=== PATIENT | male | born 1935 | race Caucasian/White ===

== ENCOUNTER → 2016-08-19 | Outpatient (CLI) | payer BC, MEDICARE ==
[~2016-08-19] MED LIST: ATEN50TA PO; ATOR20TA38 PO; COU1 PO; HYDR-3498 PO; LISI40TA9 PO; METF500T PO; ULT50 PO
--- NOTE | 2016-08-19 10:11 | RADRPT ---
PROCEDURE: XR Right hip and pelvis. CLINICAL INDICATION: Right hip pain. Pelvic pain. Postop. TECHNIQUE: Three views. Frontal pelvis. Frontal and lateral right hip. COMPARISON: 05/15/2016. 02/25/2016. FINDINGS: There is no fracture or dislocation. The soft tissues are normal. There is a right hip total arthroplasty which appears satisfactory. The left hip is grossly normal. There is no lytic or blastic lesion. Surgical clips are present in the pelvis. IMPRESSION: 1. Satisfactory postoperative appearance of the right hip. 2. Grossly normal appearance of the left hip. 3. Surgical clips in the pelvis. RPTAT: QQ .Juan Vasquez MD, MD Date Time Electronically viewed and signed by .Juan Vasquez MD, MD on 08/19/2016 10:10 .R/
--- NOTE | 2016-08-19 10:12 | RADRPT ---
PROCEDURE: XR Right hip and pelvis. CLINICAL INDICATION: Right hip pain. Pelvic pain. Postop. TECHNIQUE: Three views. Frontal pelvis. Frontal and lateral right hip. COMPARISON: 05/15/2016. 02/25/2016. FINDINGS: There is no fracture or dislocation. The soft tissues are normal. There is a right hip total arthroplasty which appears satisfactory. The left hip is grossly normal. There is no lytic or blastic lesion. Surgical clips are present in the pelvis. IMPRESSION: 1. Satisfactory postoperative appearance of the right hip. 2. Grossly normal appearance of the left hip. 3. Surgical clips in the pelvis. RPTAT: QQ .Juan Vasquez MD, MD Date Time Electronically viewed and signed by .Juan Vasquez MD, MD on 08/19/2016 10:12 .R/
== END | disposition home or self-care (01) ==
LOC: HKI 08:47
PROVIDERS: ATTEND Orthopaedic Surgery
DX: Z47.1 Aftercare following joint replacement surgery (principal); Z96.641 Presence of right artificial hip joint; Z88.0 Allergy status to penicillin; Z88.2 Allergy status to sulfonamides
CPT/HCPCS: 73502; G0463

== ENCOUNTER → 2017-02-24 | Outpatient (CLI) | payer BC, MEDICARE ==
[~2017-02-24] MED LIST changes: +TRAM50TA2 PO; -ULT50 PO
--- NOTE | 2017-02-24 15:11 | RADRPT ---
PROCEDURE: XR Right hip and pelvis. CLINICAL INDICATION: Right hip pain and pelvic pain. TECHNIQUE: 3 views. Frontal pelvis. Frontal and lateral right hip. COMPARISON: 08/19/2016. FINDINGS: There is no fracture or dislocation. The soft tissues are normal. There is a right hip total arthroplasty which appears satisfactory. There is no fracture, dislocati on, or loosening. Surgical clips are present in the lower pelvis. The left hip is unremarkable. There is no lytic lesion. IMPRESSION: 1. Satisfactory postoperative appearance of the right hip. 2. Prior lower pelvis surgery. 3. Grossly normal appearance of the left hip. RPTAT: QQ .Juan Vasquez MD, MD Date Time Electronically viewed and signed by .Juan Vasquez MD, MD on 02/24/2017 15:11 .R/
== END | disposition home or self-care (01) ==
LOC: HKI 08:15
PROVIDERS: ATTEND Orthopaedic Surgery
DX: Z47.89 Encounter for other orthopedic aftercare (principal); Z96.641 Presence of right artificial hip joint
CPT/HCPCS: 73502; G0463